=== PATIENT | female | born 1950 | race Caucasian/White ===

== ENCOUNTER 2023-10-22 15:02 | Observation (INO) | payer MEDICARE ==
[~2023-10-22] VITALS: Ht 160 cm; Wt 69.2 kg
[2023-10-22] VITALS (14 sets, daily range): BP systolic 102–165; BP diastolic 46–80
[~2023-10-22 15:02] MED LIST: ACETAMIN500 M2 PO; ADULT ASPIRIN E81 MG PO; AMITRIPTYLIN10 MG PO; AMLODIPINE10 MG PO; ARICEPT PO; ASPIRIN ADULT L81 M2 PO; ASPIRIN81 MG PO; B COMPLEX PLUS PO; B-12500 MC1 PO; BARIATRIC MULTI1 CAP PO; BENICAR HCT1 TA1; BENICAR HCT1 TA1 PO; BENICAR HCT1 TAB PO; BIOTIN1000 MCG PO; BIOTIN5000 MC2 PO; BUMETANIDE1 MG PO; CALCI-CHE1 PO; CALCIUM + D3 601 TAB; CLINDAMYCIN300 M1 PO; CLOPIDOGREL75 MG PO; COENZYME Q-10100 MG PO; COLACE CLEAR50 MG PO; COQ-10100 MG PO; COQ10200 MG PO; COZAAR25 MG PO; DIPHENHYDRAMINE25 MG PO; DOCUSATE SOD100 M2 PO; DONEPEZIL10 MG PO; EDTA DISODIU XX; FAMOTIDINE20 M1 PO; FERRAPLUS 90 PO; FLUARIX QUADRIV1 INJ IM; FUROSEMIDE20 MG PO; GABAPENTIN300 M2 PO; GLIPIZIDE10 M2 PO; HYDROCHLOROTH12.5 M1 PO; IRON (FERROUS S50 MG PO; JANUVIA100 MG PO; LAXATIVE FORMULA PO; LEVEMIR100 UNIT SC; LEVOTHYROXIN125 MC1 PO; LEVOTHYROXIN137 MCG PO; LEVOTHYROXIN150 MC1 PO; LEVOTHYROXIN150 MCG PO; LEVOTHYROXIN175 MC1 PO; LIPITOR10 M1 PO; LIPITOR20 M1 PO; LOSARTAN POT100 MG PO; LOSARTAN POT50 MG PO; LOSARTAN POTASS25 MG PO; LOSARTAN/HCT1 TA2 PO; LOVASTATIN20 M1 PO; LYRICA75 MG PO; MECLIZINE25 MG PO; METFORMIN1000 MG PO; METOCLOPRAMIDE10 MG PO; METOPROL TAR25 MG PO; MONTELUKAST SOD10 MG PO; MULT VITAMIN PO; MULTI 501; MULTIVITAMI1 PO; NOVOLOG FLEXPEN SC; OLMESARTAN MEDO PO; OMEPRAZOLE DR40 MG PO; OMEPRAZOLE20 M1 PO; OZEMPIC2 MG SC; PERCOCET 5/325M1 TAB PO; POTASSIUM CHLO20 ME2 PO; PRAMIPEXOLE DI0.5 MG PO; PRAMIPEXOLE0.75 MG PO; PREGABALIN75 MG PO; PRILOSEC20 MG/CAP PO; REGLAN10 MG PO; RESTORIL15 M1 PO; SCOPOLAMIN1 MG/3 DAY; STOOL SOFTENER250 MG; SUPER BIOTIN5000 MC1 PO; TEMAZEPAM15 MG PO; TRAZODONE50 MG PO; TRESIBA FL100 UNIT/M IJ; TYLENOL325 M2 PO; VALACYCLOVIR500 MG PO; VALERIAN ROOT250 MG PO; VITAMIN C1000 MG PO; VITAMIN D-32000 UNIT PO; VITAMIN D31000 UNI1 PO; ZINC30 M2 PO; ZOFRAN4 MG/TAB PO; [UNRECOGNIZED DRUG - OTHER] PO; [UNRECOGNIZED DRUG - OTHER] PO; [UNRECOGNIZED DRUG - OTHER] PO
--- NOTE | 2023-10-22 15:15 | NUR ---
PATIENT FELL BY TRIPPIN AND FALLING AND PATIENT STATES SHE WAS TO WEAK TO GET UP. SHE WAS ON THE FLOOR FOR 3 DAYS AGO. SHE CAME BY EMS. SHE WAS FOUND ON THE FLOOR BY HER NEIGHBOR . WHEN EMS ARRIVED HER BLOOD GLUCOSE WAS 37 AND SHE WAS ALERT AND ORIENTED AT THAT TIME. ORAL GLUCOSE AND DW10 GIVEN AND PATIENT CONTINUED BE ALERT AND ORIENTED. PER EMS RECHECK BLOOD GLUCOSE 137. N
[2023-10-22] MEDS ORDERED: SODIUM CHLORIDE 0.9% 1,000 ML IV ONE ×2 (15:25→16:25)
[2023-10-22 15:46] LABS: BASO% 0.7 % (0-3); EOS% 1.2 % (0-8); HEMOGLOBIN 11.3 g/dl (12.0-16.0); IMMATURE GRANULOCYTES 0.3 % (0.0-5.0); LYMPH% 10.7 % (15-41); MEAN CORPUSCULAR HGB 28.3 pG CALC (26.0-32.0); MEAN CORPUSCULAR HGB CONC 33.2 g/dL CAL (32.0-36.0); MONO% 4.5 % (2-13); NEUT# 4.94 thou/uL (2.00-7.15); NEUT% 82.6 % (42-76); RED CELL DISTRI WIDTH 15.5 % (11.5-15.5)
[2023-10-22 15:59] LABS: ALBUMIN 2.5 g/dL (3.2-5.0); BILIRUBIN, TOTAL 1.1 mg/dL (0.02-1.3); CREATININE 0.8 mg/dL (0.5-1.0); POTASSIUM 3.9 mmol/l (3.5-5.1); TOTAL PROTEIN 5.1 g/dL (6.3-8.2)
--- NOTE | 2023-10-22 16:00 | NUR ---
URINE SPECIMENT OBTAINED AND SENT TO LAB
[2023-10-22 16:13] LABS: URINE BLOOD DIPSTICK Negative (NEGATIVE); URINE COLOR Yellow; URINE GLUCOSE - DIPSTICK Negative (NEGATIVE); URINE KETONE >=160 mg/dL (NEGATIVE); URINE LEUK ESTERASE Negative (NEGATIVE); URINE NITRITE - DIPSTICK Negative (Negative); URINE PROTEIN - DIPSTICK 100 mg/dL (NEG-TRACE); URINE SPECIFIC GRAVITY >=1.030
[2023-10-22 16:21] LABS: URINE MUCUS FEW hpf (NONE-FEW); URINE SQUAMOUS EPITHELIAL CELL FEW EPI/hpf (0-FEW); URINE WBC 0-2 WBC/hpf (0-5)
--- NOTE | 2023-10-22 17:40 | NUR ---
PATIENT FOUND WITH GENERALIZED WEAKNESS SHE ISN'T ABLE TO STAND WITHOUT A STEADY STANCE. RHOMBERG SIGN POSITIVE . SHE REPORTS THAT SHE HAS MANY FLIGHTS OF STAIRS AND SHE DOESN'T BELIEVE THAT SHE WOULD BE ABLE TO WALK UP THE STAIRS. ER PHYSICIAN NOTIFIED
[2023-10-22] MEDS ORDERED: ACETAMINOPHEN 325 MG/TAB PO PRN (18:00)
[2023-10-22] MEDS ORDERED: MAGNESIUM HYDROXIDE 30 ML UDC PO PRN (18:00)
[2023-10-22] MEDS ORDERED: SODIUM CHLORIDE 0.9% 1,000 ML IV PRN (18:00)
[2023-10-22] MEDS ORDERED: hydrALAZINE HCL 20 MG/ML VIAL(1 ML) IV PRN (18:10)
[2023-10-22 18:15] LABS: MAGNESIUM 1.6 mg/dL (1.6-2.3)
--- NOTE | 2023-10-22 18:24 | NUR ---
GAVE REPORT TO NOLBERTO. PATIENT WENT TO CAT SCAN WITH BELONGING BAG AND PAPERWORK FOR ADMISSION. PATIENT WILL BE TRANSPORTED TO ROOM 269 FROM CAT SCAN.
--- NOTE | 2023-10-22 18:40 | NUR ---
PATIENT ADMITTED FROM ED TO ROOM 269 VIA WHEELCHAIR. PATIENT IS A&OX4 AND ABLE TO MAKE NEEDS KNOWN. PATIENT ORIENTED TO ROOM, CALL LIGHT, AND SURROUNDING. PATIENT DINNER ARRIVED FROM [employer]. PATIENT DENIES ANY NEEDS AT THIS TIME. BED AT LOWEST LEVEL, TOP 2 SIDERAILS UP, AND CALL LIGHT WITHIN REACH. WILL CONTINUE TO MONITOR.
--- NOTE | 2023-10-22 20:00 | NUR ---
ASSESSMENT AND ADMISSION DONE. PT HAS A WOUND ON HER RIGHT BIG TOE PICTURE WAS TAKEN AND A BANDAGE WAS PLACED. BLE +1 EDEMA. 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 PT ABLE TO AMBULATE WITH MINIMAL ASSISTANCE AT THIS TIME WILL USE BSC. IV SITE FLUSHED WORKING PROPERLY NS @ 100ML/HR. PT WAS PROVIDED WITH A DINNER PLATE AND ORAL FLUIDS. LUNGS CLEAR ON RA BP SLIGHTLY ELEVATED. ALLERGY AND FALL RISK BAND PLACED ON PT. CALL LIGHT WITHIN REACH. PT STATED UNDERSTANDING ON HOW TO USE IT. PLAN OF CARE ONGOING.
[2023-10-22] MEDS ORDERED: DONEPEZIL HCL 5 MG/TAB PO SCH (21:00)
[2023-10-22] MEDS ORDERED: traZODone HCL 50 MG/TAB PO SCH (21:00)
[2023-10-22] MEDS ORDERED: INSULIN LISPRO 100 UNITS/ML ML SC SCH (21:00)
--- NOTE | 2023-10-23 00:30 | NUR ---
PT SLEEPING EARLIER WHEN HELPED TO BSC SHE STATED HAVING NAUSEA. NURSE REACHED OUT TO ONCALL PROVIDER AND AWAITING RESPONSE WHEN NURSE WENT TO CHECK ON PT TO INFORM HER PT WAS BACK ASLEEP. NURSE WILL CHECK BACK LATER TO SEE IF PT STILL IS HAVING NAUSEA AND IS AWAKE. CALL LIGHT WITHIN REACH. PLAN OF CARE ONGOING.
--- NOTE | 2023-10-23 04:00 | NUR ---
PT RESTING NO DISTRESS NOTED ON EXAM. CALL LIGHT WITHIN REACH. PLAN OF CARE ONGOING.
[2023-10-23 04:30] VITALS: BP 138/69
[2023-10-23 05:00] VITALS: BP 138/69
[2023-10-23] MEDS ORDERED: LEVOTHYROXINE SODIUM 100 MCG TAB PO SCH (06:00)
[2023-10-23] MEDS ORDERED: LEVOTHYROXINE SODIUM 75 MCG/TAB PO SCH (06:00)
--- NOTE | 2023-10-23 06:08 | NUR ---
10/22/23 patient was offered to clean up or shower and patient refused after glucose after stool smell was present. nurse was notified that patient refused to clean up.
[2023-10-23 06:17] LABS: ALBUMIN 2.3 g/dL (3.2-5.0); BILIRUBIN, TOTAL 0.9 mg/dL (0.02-1.3); CREATININE 0.6 mg/dL (0.5-1.0); MAGNESIUM 1.5 mg/dL (1.6-2.3); POTASSIUM 3.7 mmol/l (3.5-5.1)
[2023-10-23 06:55] LABS: BASO% 0.6 % (0-3); EOS% 1.4 % (0-8); HEMATOCRIT 33.2 % (37.0-47.0); HEMOGLOBIN 10.8 g/dl (12.0-16.0); IMMATURE GRANULOCYTES 0.4 % (0.0-5.0); LYMPH% 11.5 % (15-41); MEAN CELL VOLUME 84.9 fL CALC (80.0-100.0); MEAN CORPUSCULAR HGB 27.6 pG CALC (26.0-32.0); MEAN CORPUSCULAR HGB CONC 32.5 g/dL CAL (32.0-36.0); MONO% 4.6 % (2-13); NEUT# 4.05 thou/uL (2.00-7.15); NEUT% 81.5 % (42-76); RED BLOOD COUNT 3.91 mill/uL (4.20-5.60); RED CELL DISTRI WIDTH 15.3 % (11.5-15.5)
[2023-10-23 07:02] VITALS: BP 163/80
--- NOTE | 2023-10-23 07:10 | NUR ---
REPORT RECEIVED FROM GABINORN
[2023-10-23] MEDS ORDERED: MAGNESIUM SULFATE HEPTAHYDRATE 50 ML IV SCH (08:00)
[2023-10-23] MEDS ORDERED: LOSARTAN Potassium 25 MG/TAB PO SCH (09:00)
[2023-10-23] MEDS ORDERED: ASPIRIN 81 MG/TAB PO SCH (09:00)
[2023-10-23] MEDS ORDERED: PANTOPRAZOLE SODIUM Sesquihydr 40 MG/TAB PO SCH (09:00)
[2023-10-23 09:28] VITALS: BP 161/65
--- NOTE | 2023-10-23 09:40 | NUR ---
PT RESTING IN SEMI FOWLERS POSITION,A&O X3;VS OBTAINED AND ASSESSMENT COMPLETED;PT DENIES ANY CURRENT PAIN OR DISCOMFORTS,PAIN SCALE AND REPORTING EDUCATED;RESPIRATIONS EVEN AND UNLABORED ON RA,CLEAR LUNG SOUNDS;ABDOMEN DISTENDED/SOFT ON PALPATION AND ACTIVE IN ALL 4 QUADRANTS;WEAK PEDAL PULSES;DRESSING TO RT TOE, CDI;MIDDLE TOE MISSING TO RT FOOT, AND ALL TOES MISSING TO LEFT FOOT;EMS #20G TI LW INFUSING NS @ 100ML/HR,SITE APPEARS HEALTHY;ACUCCHECK 86, NO COVERAGE NEEDED;PT DENIES ANY ADDITIONAL NEEDS AND IS ENCOURAGED TO CALL FOR ASSISTANCE IF NEEDED;FALL PRECAUTIONS IN PLACE WITH BE IN THE LOWEST POSITION AND CALL LIGHT IN REACH;FREQUENT ROUNDS MADE.
--- NOTE | 2023-10-23 09:55 | NUR ---
AT BEDSIDE DISCUSSING POC WITH PT.
--- NOTE | 2023-10-23 11:35 | NUR ---
PT RESTING IN SEMI FOWLERS POSITION WATCHING TV;RESPIRATIONS EVEN AND UNLABORED ON RA;PT DENIES ANY CURRENT PAIN OR DISCOMFORTS;IV SITE PATENT;PT EDUCATED ON PLACE TO D/C HOME THIS AFTERNOON AND VERBALIZES UNDERSTANDING;ENCOURAGED TO CALL FOR ASSISTANCE IF NEEDED;CALL LIGHT IN REACH;FREQUENT ROUNDS MADE.
[2023-10-23 11:36] VITALS: BP 116/56
--- NOTE | 2023-10-23 15:30 | NUR ---
PT RESTING IN SEMI FOWLERS POSITION WITH STEEPLE JACK AT BEDSIDE TAKING VS;RESPIRATIONS EVEN AND UNLABORED ON RA;PT DENIES ANY CURRENT PAIN OR NEEDS;IV SITE TO LW PATENT;PT ENCOURAGED TO CALL FOR ASSISTANCE IF NEEDED;FALL PRECAUTIONS REMAIN IN PLACE WITH BED IN THE LWOEST POSITION AND CALL LIGHT IN REACH;FREQUENT ROUNDS MADE.
[2023-10-23 15:33] VITALS: BP 141/67
--- NOTE | 2023-10-23 16:25 | NUR ---
RECEIVED CALL FROM [facility] ACCEPTANCE WITH ROOM NUMBER 109B AND TO CALL REPORT TO [phone] OR [phone]. HER RENAL CASE MANAGER TIME IS 1730 AND [facility]SP[facility] TO RENAL CASE MANAGER PT.
--- NOTE | 2023-10-23 17:00 | NUR ---
PT EDUCATED ON PLANS TO D/C TO [facility] AT APPROX 1730. PT VERBALIZES UNDERSTANDING AND DENIES ANY ADDITIONAL QUESTIONS OR NEEDS;IV SITE REMOVED WITH CATHETER INTACT.FREQUENT ROUNDS MADE
--- NOTE | 2023-10-23 17:20 | NUR ---
SPOKE WITH DAUGHTER-IN LAW- NADDomenico AND UPDATED ON PT POC INCLUDING TRASPORT TO [facility].
--- NOTE | 2023-10-23 17:35 | NUR ---
PT TRANSPORTED TO [facility] VIA STRETCHER IN STABLE CONDITION ACCOMPANIED BY [facility].
--- NOTE | 2023-10-23 17:52 | NUR ---
REPORT CALLED TO MOLLY SAINI AT [facility]. PT TO GO TO ROOM 109B UPON ARRIVAL.
[2023-10-23] MEDS ORDERED: ENOXAPARIN SODIUM 40 MG/0.4 ML SYR SC SCH (21:00)
== END 2023-10-23 17:35 ==
LOC: ED 15:02 → ED-I 17:43 → ED 17:58 → MS2 17:59
PROVIDERS: Family Medicine; ADMIT Student in an Organized Health Care Education/Training Program; ATTEND Student in an Organized Health Care Education/Training Program
DX: E86.0 Dehydration (principal); E83.42 Hypomagnesemia; I11.0 Hypertensive heart disease with heart failure; I50.9 Heart failure, unspecified; E11.9 Type 2 diabetes mellitus without complications; I25.10 Atherosclerotic heart disease of native coronary artery without angina pectoris; E03.9 Hypothyroidism, unspecified; E11.42 Type 2 diabetes mellitus with diabetic polyneuropathy; Z89.439 Acquired absence of unspecified foot; Z98.84 Bariatric surgery status; Z95.1 Presence of aortocoronary bypass graft; Z79.4 Long term (current) use of insulin; Z91.81 History of falling; Z60.2 Problems related to living alone
CPT/HCPCS: J3475

== ENCOUNTER 2023-12-12 21:03 | Emergency (ER) | payer MEDICARE ==
[~2023-12-12] VITALS: Ht 160 cm; Wt 61.0 kg
[2023-12-12 21:18] VITALS: BP 111/73
[2023-12-12 21:30] VITALS: BP 100/66
[2023-12-12 21:46] LABS: BASO% 0.2 % (0-3); HEMATOCRIT 32.5 % (37.0-47.0); HEMOGLOBIN 10.2 g/dl (12.0-16.0); LYMPH% 9.9 % (15-41); MEAN CELL VOLUME 86.4 fL CALC (80.0-100.0); MEAN CORPUSCULAR HGB 27.1 pG CALC (26.0-32.0); MEAN CORPUSCULAR HGB CONC 31.4 g/dL CAL (32.0-36.0); MONO% 1.9 % (2-13); NEUT# 11.46 thou/uL (2.00-7.15); RED BLOOD COUNT 3.76 mill/uL (4.20-5.60); RED CELL DISTRI WIDTH 14.1 % (11.5-15.5)
[2023-12-12 21:58] LABS: ALBUMIN 1.8 g/dL (3.2-5.0); ALKALINE PHOSPHATASE 796 u/l (38-126); ANION GAP 12 (6-22 (CALC)); BILIRUBIN, TOTAL 0.9 mg/dL (0.02-1.3); BUN 15 mg/dL (8-23); BUN/CREATININE RATIO 13 (12-20 (CALC)); CHLORIDE 108 mmol/l (95-108); CPK 29 u/l (30-135); CREATININE 1.1 mg/dL (0.5-1.0); ESTIMATED GFR 53 ML/MIN (>=90 (CALC)); MAGNESIUM 1.7 mg/dL (1.6-2.3); POTASSIUM 3.2 mmol/l (3.5-5.1); SGOT/AST 48 u/l (9-36); SODIUM 132 mmol/l (137-146); TOTAL PROTEIN 4.5 g/dL (6.3-8.2)
[2023-12-12 21:59] LABS: CARBON DIOXIDE 15 mmol/l (22-30)
[2023-12-12 22:04] LABS: ACT PARTIAL THROMBO TIME 28.4 SECONDS (20.0-32.5)
[2023-12-12 22:07] LABS: INTERNATIONAL NORMALIZED RATIO 1.5 RATIO (0.7-1.3); PROTHROMBIN TIME 13.8 SECONDS (9.0-12.5)
[2023-12-12 22:30] VITALS: BP 90/51
[2023-12-12 22:47] VITALS: BP 102/51
[2023-12-12 23:00] VITALS: BP 117/57
[2023-12-12 23:30] VITALS: BP 83/52
[2023-12-13] VITALS (7 sets, daily range): BP systolic 91–119; BP diastolic 51–61
[2023-12-13 01:16] LABS: URINE BLOOD DIPSTICK Small (NEGATIVE); URINE COLOR Yellow; URINE GLUCOSE - DIPSTICK Negative (NEGATIVE); URINE KETONE Trace mg/dL (NEGATIVE); URINE LEUK ESTERASE Small (NEGATIVE); URINE NITRITE - DIPSTICK Negative (Negative); URINE PROTEIN - DIPSTICK 100 mg/dL (NEG-TRACE); URINE SPECIFIC GRAVITY 1.025
[2023-12-13 01:37] LABS: URINE BACTERIA MODERATE hpf; URINE SQUAMOUS EPITHELIAL CELL FEW EPI/hpf (0-FEW); URINE WBC 50-100 WBC/hpf (0-5)
[2023-12-13] MEDS ORDERED: BACTRIM DS1 TAB PO (02:11)
[2023-12-13] MEDS ORDERED: 0.9% NaCL W/KCL 20 MEQ 1,000 ML IV SCH (02:15)
[2023-12-13] MEDS ORDERED: POTASSIUM CHLORIDE 20 MEQ/TAB PO ONE (03:05)
== END 2023-12-13 03:59 ==
LOC: ED 21:03
PROVIDERS: Family Medicine
DX: N39.0 Urinary tract infection, site not specified (principal); B96.20 Unspecified Escherichia coli [E. coli] as the cause of diseases classified elsewhere; I11.0 Hypertensive heart disease with heart failure; I50.9 Heart failure, unspecified; E11.9 Type 2 diabetes mellitus without complications; Z95.1 Presence of aortocoronary bypass graft; Z98.84 Bariatric surgery status; Z79.4 Long term (current) use of insulin; G90.09 Other idiopathic peripheral autonomic neuropathy; N17.9 Acute kidney failure, unspecified; I50.32 Chronic diastolic (congestive) heart failure

== ENCOUNTER 2023-12-23 07:25 | Emergency (ER) | payer MEDICARE ==
[~2023-12-23] VITALS: Ht 160 cm; Wt 61.0 kg
[2023-12-23] VITALS (35 sets, daily range): BP systolic 62–137; BP diastolic 33–86
[~2023-12-23 07:25] MED LIST changes: +BACTRIM DS1 TAB PO
[2023-12-23] MEDS ORDERED: LEVOTHYROXIN25 MC1 PO (07:45)
[2023-12-23] MEDS ORDERED: ATORVASTATIN CA20 MG PO (07:49)
[2023-12-23] MEDS ORDERED: REMERON SOLTAB15 MG PO (07:51)
[2023-12-23] MEDS ORDERED: ZOFRAN4 MG/TAB PO (07:55)
[2023-12-23] MEDS ORDERED: PROTONIX40 M2 PO (07:57)
[2023-12-23] MEDS ORDERED: ROPINIROLE1 MG PO (07:58)
[2023-12-23] MEDS ORDERED: WELLBUTRIN150 M1 PO (07:59)
[2023-12-23] MEDS ORDERED: POT CHLORIDE10 ME5 PO (08:02)
[2023-12-23] MEDS ORDERED: PROBIOTI2 PO (08:03)
[2023-12-23] MEDS ORDERED: ARICEPT10 MG PO (08:04)
[2023-12-23 09:05] LABS: URINE BLOOD DIPSTICK Negative (NEGATIVE); URINE GLUCOSE - DIPSTICK Negative (NEGATIVE); URINE KETONE Trace mg/dL (NEGATIVE); URINE LEUK ESTERASE Negative (NEGATIVE); URINE NITRITE - DIPSTICK Negative (Negative); URINE PH 5.5 (4.5-8.0); URINE PROTEIN - DIPSTICK Negative (NEG-TRACE)
[2023-12-23 09:06] LABS: URINE COLOR Yellow
[2023-12-23 11:05] LABS: BASO% 0.7 % (0-3); EOS% 1.8 % (0-8); IMMATURE GRANULOCYTES 0.3 % (0.0-5.0); LYMPH% 10.7 % (15-41); MEAN CELL VOLUME 84.1 fL CALC (80.0-100.0); MEAN CORPUSCULAR HGB CONC 32.1 g/dL CAL (32.0-36.0); MONO% 3.1 % (2-13); NEUT# 8.48 thou/uL (2.00-7.15); NEUT% 83.4 % (42-76); RED BLOOD COUNT 3.33 mill/uL (4.20-5.60); RED CELL DISTRI WIDTH 15.6 % (11.5-15.5)
[2023-12-23 12:04] LABS: INTERNATIONAL NORMALIZED RATIO 1.4 RATIO (0.7-1.3)
[2023-12-23 12:05] LABS: ALBUMIN 1.6 g/dL (3.2-5.0); CREATININE 1.3 mg/dL (0.5-1.0); TOTAL PROTEIN 4.6 g/dL (6.3-8.2)
[2023-12-23 12:06] LABS: PROTHROMBIN TIME 13.3 SECONDS (9.0-12.5)
[2023-12-23 12:14] LABS: BILIRUBIN, TOTAL 2.7 mg/dL (0.02-1.3); POTASSIUM 5.2 mmol/l (3.5-5.1)
[2023-12-23] MEDS ORDERED: SODIUM CHLORIDE 0.9% 1,000 ML IV ONE (17:30)
== END 2023-12-23 20:50 | disposition home or self-care (01) ==
LOC: ED 07:25
PROVIDERS: Emergency Medicine
PROC: 06HY33Z Insertion of Infusion Device into Lower Vein, Percutaneous Approach (ICD-10-PCS; principal; 2023-12-23)
DX: R74.8 Abnormal levels of other serum enzymes (principal); K86.89 Other specified diseases of pancreas; I11.0 Hypertensive heart disease with heart failure; I50.9 Heart failure, unspecified; E11.9 Type 2 diabetes mellitus without complications; Z98.84 Bariatric surgery status; Z95.1 Presence of aortocoronary bypass graft
CPT/HCPCS: Q9967

== ENCOUNTER 2023-12-25 10:45 | Emergency (ER) | payer MEDICARE ==
[2023-12-25] VITALS (8 sets, daily range): BP systolic 80–108; BP diastolic 39–74
[~2023-12-25] VITALS: Ht 160 cm; Wt 61.0 kg
[~2023-12-25 10:45] MED LIST changes: +ARICEPT10 MG PO; +ATORVASTATIN CA20 MG PO; +LEVOTHYROXIN25 MC1 PO; +POT CHLORIDE10 ME5 PO; +PROBIOTI2 PO; +PROTONIX40 M2 PO; +REMERON SOLTAB15 MG PO; +ROPINIROLE1 MG PO; +WELLBUTRIN150 M1 PO
[2023-12-25 12:09] LABS: BASO% 0.8 % (0-3); EOS% 2.2 % (0-8); HEMATOCRIT 26.1 % (37.0-47.0); HEMOGLOBIN 8.5 g/dl (12.0-16.0); IMMATURE GRANULOCYTES 0.3 % (0.0-5.0); LYMPH% 10.1 % (15-41); MEAN CELL VOLUME 83.4 fL CALC (80.0-100.0); MEAN CORPUSCULAR HGB 27.2 pG CALC (26.0-32.0); MEAN CORPUSCULAR HGB CONC 32.6 g/dL CAL (32.0-36.0); MONO% 4.1 % (2-13); NEUT# 5.99 thou/uL (2.00-7.15); NEUT% 82.5 % (42-76); RED BLOOD COUNT 3.13 mill/uL (4.20-5.60); RED CELL DISTRI WIDTH 15.2 % (11.5-15.5)
[2023-12-25 12:23] LABS: ALBUMIN 1.4 g/dL (3.2-5.0); TOTAL PROTEIN 4.1 g/dL (6.3-8.2)
[2023-12-25 12:30] LABS: BILIRUBIN, TOTAL 3.9 mg/dL (0.02-1.3); POTASSIUM 5.3 mmol/l (3.5-5.1)
== END 2023-12-26 07:09 | disposition short-term general hospital (02) ==
LOC: ED 10:45
PROVIDERS: Family Medicine
PROC: 05HM33Z Insertion of Infusion Device into Right Internal Jugular Vein, Percutaneous Approach (ICD-10-PCS; principal; 2023-12-25)
DX: R74.8 Abnormal levels of other serum enzymes (principal); R74.01 Elevation of levels of liver transaminase levels; K86.89 Other specified diseases of pancreas; I11.0 Hypertensive heart disease with heart failure; I50.9 Heart failure, unspecified; E11.9 Type 2 diabetes mellitus without complications; Z95.1 Presence of aortocoronary bypass graft; Z98.84 Bariatric surgery status